=== PATIENT | female | born 1965 | race Hispanic/Latino ===

== ENCOUNTER → 2017-07-12 | Outpatient (CLI) | payer OTHER, MEDICARE ==
[~2017-07-12] MED LIST: ALBU6.7H IH; CELE200 PO; CETI10TA86 PO; DESV50TA PO; DICL2100G TP; FAMO20TA32 PO; GABA-531 PO; IBUP-2077 PO; LANS30CA55 PO; LUBI24CA2 PO; PANT40TA25 PO; TRAM50TA4 PO; TRAZ-147 PO; ZOLP10TA6 PO; [UNRECOGNIZED DRUG - CODE] PO
== END | disposition home or self-care (01) ==
LOC: RAH 09:34
PROVIDERS: ATTEND Internal Medicine
DX: N63.32 Unspecified lump in axillary tail of the left breast (principal); R60.0 Localized edema; R59.9 Enlarged lymph nodes, unspecified; Z85.3 Personal history of malignant neoplasm of breast
CPT/HCPCS: 73610; 76882; 77065; 93971

== ENCOUNTER → 2017-07-25 | Outpatient (CLI) | payer OTHER, MEDICARE | END | disposition home or self-care (01) | LOC: RAH 07-18 12:39 | PROVIDERS: ATTEND Internal Medicine | DX: R22.2 Localized swelling, mass and lump, trunk (principal) | CPT/HCPCS: 76882 ==

== ENCOUNTER 2017-08-22 06:30 | Day surgery (SDC) | payer OTHER, MEDICARE ==
[~2017-08-22 06:30] MED LIST changes: -ALBU6.7H IH; -FAMO20TA32 PO; -GABA-531 PO; -LANS30CA55 PO; -PANT40TA25 PO; -[UNRECOGNIZED DRUG - CODE] PO
[2017-08-22] MEDS ORDERED: SODIUM CHLORIDE 0.9% 1000ML 1,000 ML IV ONE (06:50)
[2017-08-22] MEDS ORDERED: PROPOFOL 10 MG/ML 20ML VIAL IV ONE ×2 (07:52)
[2017-08-22] MEDS ORDERED: GABA-531 PO (08:01)
[2017-08-22] MEDS ORDERED: PANT40TA25 PO (08:01)
[2017-08-22] MEDS ORDERED: LANS30CA55 PO (08:01)
[2017-08-22] MEDS ORDERED: ALBU6.7H IH (08:01)
[2017-08-22] MEDS ORDERED: FAMO20TA32 PO (08:01)
[2017-08-22] MEDS ORDERED: [UNRECOGNIZED DRUG - CODE] PO (08:01)
== END 2017-08-22 08:45 | disposition home or self-care (01) ==
LOC: SUH 06:30 → DAH 06:30 → SUH 08:45
PROVIDERS: ATTEND Internal Medicine Gastroenterology
DX: Z12.11 Encounter for screening for malignant neoplasm of colon (principal); K21.9 Gastro-esophageal reflux disease without esophagitis; F32.9 Major depressive disorder, single episode, unspecified; M19.90 Unspecified osteoarthritis, unspecified site; Z85.3 Personal history of malignant neoplasm of breast; Z85.44 Personal history of malignant neoplasm of other female genital organs
CPT/HCPCS: A4606; G0121; J2704 ×2; J7030

== ENCOUNTER → 2017-09-20 | Outpatient (CLI) | payer OTHER, MEDICARE ==
[~2017-09-20] MED LIST changes: +ALBU6.7H IH; +FAMO20TA32 PO; +GABA-531 PO; -IBUP-2077 PO; +LANS30CA55 PO; +PANT40TA25 PO; -TRAM50TA4 PO; -TRAZ-147 PO; +[UNRECOGNIZED DRUG - CODE] PO
== END ==
LOC: RAH 09:40
PROVIDERS: ATTEND Pain Medicine Interventional Pain Medicine
DX: R60.0 Localized edema (principal); M79.672 Pain in left foot
CPT/HCPCS: 73630

== ENCOUNTER → 2017-10-10 | Outpatient (CLI) | payer OTHER, MEDICARE | END | disposition home or self-care (01) | LOC: RAH 09:23 | PROVIDERS: ATTEND Internal Medicine | DX: R06.09 Other forms of dyspnea (principal); Z90.12 Acquired absence of left breast and nipple | CPT/HCPCS: 71046 ==

== ENCOUNTER → 2017-10-28 | Outpatient (CLI) | payer OTHER, MEDICARE | END | disposition home or self-care (01) | LOC: RAH 08:37 | PROVIDERS: ATTEND Internal Medicine | DX: R06.09 Other forms of dyspnea (principal) | CPT/HCPCS: 93306 ==

== ENCOUNTER → 2018-12-18 | Outpatient (CLI) | payer OTHER, MEDICARE | END | disposition home or self-care (01) | LOC: RAH 11:38 | PROVIDERS: ATTEND Pain Medicine Interventional Pain Medicine | DX: M47.812 Spondylosis without myelopathy or radiculopathy, cervical region (principal); Z85.3 Personal history of malignant neoplasm of breast | CPT/HCPCS: 72040 ==

== ENCOUNTER 2019-01-17 06:41 | Inpatient (IN) | payer OTHER, MEDICARE | END 2019-01-19 13:20 | LOC: DAH 06:41 → DAHIP 06:42 → 4BH 13:51 | PROC: 0SRC0J9 Replacement of Right Knee Joint with Synthetic Substitute, Cemented, Open Approach (ICD-10-PCS; principal; 2019-01-17 10:08) | DX: M17.11 Unilateral primary osteoarthritis, right knee (principal) ==

== ENCOUNTER 2019-03-06 17:15 | Emergency (ER) | payer OTHER, MEDICARE ==
[~2019-03-06 17:15] MED LIST changes: +ACET-2027 PO; -ALBU6.7H IH; +ALBU6.7H9 IH; +ASCO10007 PO; +ASPI-1012 PO; +ATOR10TA PO; +CYCL30DR OP; -DICL2100G TP; +DULO60CA64 PO; -FAMO20TA32 PO; +GABA600T10 PO; +HYDR25TA PO; -LANS30CA55 PO; -LUBI24CA2 PO; +MECL12.585 PO; +MORP-108 PO; +MV-M1TAB20 PO; -PANT40TA25 PO; +POTA20TA12 PO; +PRAM0.122 PO; -[UNRECOGNIZED DRUG - CODE] PO
[2019-03-06] MEDS ORDERED: SODIUM CHLORIDE 0.9% 1000ML 1,000 ML IV ONE (18:12)
[2019-03-06 18:23] LABS: BASOPHILS % (AUTO) 0.6 % (0.0-5.0); EOSINOPHILS % (AUTO) 0.1 % (0.0-8.0); HEMATOCRIT 32.9 % (36-48); LYMPHOCYTES % (AUTO) 16.9 % (21.0-51.0); MEAN CORPUSCULAR HEMOGLOBIN 27.3 pg (27.0-33.0); MEAN CORPUSCULAR HGB CONC 33.8 g/dL (32.0-36.0); MEAN CORPUSCULAR VOLUME 80.7 fL (79-99); MONOCYTES % (AUTO) 6.1 % (3.0-13.0); NEUTROPHILS % (AUTO) 76.3 % (40.0-77.0); PLATELET COUNT (AUTO) 87 K/uL (130-400); RED BLOOD CELL COUNT(AUTO) 4.08 MIL/uL (4.00-5.50); WHITE BLOOD COUNT (AUTO) 9.4 K/uL (4.8-10.8)
[2019-03-06] MEDS ORDERED: ONDANSETRON HCL 4 MG/2 ML VIAL ONE (18:53)
[2019-03-06] MEDS ORDERED: DIPHENOXYLATE HCL/ATROPINE 2.5/0.025 MG TAB PO ONE (18:53)
[2019-03-06 19:08] LABS: ALANINE AMINOTRANSFERASE 8 U/L (12-78); ALBUMIN 2.9 g/dL (3.5-5.0); ASPARTATE AMINOTRANSFERASE 19 U/L (10-37); BILIRUBIN,TOTAL 0.9 mg/dL (0.2-1.0); CARBON DIOXIDE 40 mmol/L (21-32); CREATININE 0.6 mg/dL (0.5-1.5); GLOMERULAR FILTR. RATE CALC 111 mL/min (>60); GLUCOSE,RANDOM 147 mg/dL (70-105); SODIUM SERUM 136 mmol/L (136-145); UREA NITROGEN, BLOOD 12 mg/dL (7-18)
[2019-03-06 19:11] LABS: LIPASE < 50 U/L (114-286)
[2019-03-06 19:12] LABS: CHLORIDE 90 mmol/L (101-111); POTASSIUM 2.7 mmol/L (3.5-5.1)
[2019-03-06] MEDS ORDERED: IOHEXOL-350 75 ML VIAL IV ONE (19:26)
[2019-03-06] MEDS ORDERED: POTASSIUM CHLORIDE 20 MEQ ERTAB PO ONE ×2 (19:33→20:42)
[2019-03-06 19:35] LABS: APPEARANCE,URINE Cloudy (CLEAR); BILIRUBIN,URINE Negative (NEGATIVE); COLOR,URINE Yellow (YELLOW); GLUCOSE, URINE (UA) Negative (NEGATIVE); KETONES,URINE Negative (NEGATIVE); LEUKOCYTE ESTERASE ,URINE Trace (NEGATIVE); NITRATE,URINE Positive (NEGATIVE); OCCULT BLOOD,URINE Negative (NEGATIVE); PROTEIN,URINE Negative (NEGATIVE)
[2019-03-06 19:49] LABS: PLATELET MORPHOLOGY COMMENT DECREASED
[2019-03-06 20:13] LABS: BACTERIA,URINE Few /HPF (None Seen); RBC,URINE 0-1 /HPF (0-1)
[2019-03-06 20:14] LABS: SQUAMOUS EPITHELIAL CELL,UR Few /HPF (0-2)
[2019-03-06 20:15] LABS: TRANSITIONAL EPI CELLS,URINE Rare /HPF (None Seen)
== END 2019-03-06 20:55 | disposition home or self-care (01) ==
LOC: EDH 17:15
DX: E87.6 Hypokalemia (principal); R11.2 Nausea with vomiting, unspecified; R19.7 Diarrhea, unspecified; E78.00 Pure hypercholesterolemia, unspecified; M19.90 Unspecified osteoarthritis, unspecified site; Z98.890 Other specified postprocedural states
CPT/HCPCS: 36415; 71045; 74177; 80053; 81001; 83690; 83735; 85025; 96374; 99285; J2405; J7030; Q9967

== ENCOUNTER → 2020-04-14 | Outpatient (CLI) | payer OTHER, MEDICARE ==
[~2020-04-14] MED LIST changes: +ASCO100031 PO; -ASCO10007 PO; +IOHEXOL-350 50ML VIAL IV ONE; +MECL-183 PO; -MECL12.585 PO
== END | disposition home or self-care (01) ==
LOC: RAH 13:24
PROVIDERS: ATTEND Internal Medicine
DX: R55 Syncope and collapse (principal); H81.13 Benign paroxysmal vertigo, bilateral
CPT/HCPCS: 70470; Q9967

== ENCOUNTER → 2020-04-21 | Outpatient (CLI) | payer OTHER, MEDICARE ==
[~2020-04-21] MED LIST changes: -IOHEXOL-350 50ML VIAL IV ONE
== END | disposition home or self-care (01) ==
LOC: RAH 08:50
PROVIDERS: ATTEND Internal Medicine
DX: R55 Syncope and collapse (principal)
CPT/HCPCS: 93306; 93356; 93880

== ENCOUNTER → 2020-10-01 | Outpatient (CLI) | payer OTHER, MEDICARE ==
[~2020-10-01] MED LIST changes: -MECL-183 PO; +MECL-226 PO
== END | disposition home or self-care (01) ==
LOC: RAH 14:20
PROVIDERS: ATTEND Internal Medicine
DX: R92.2 Inconclusive mammogram (principal); Z85.3 Personal history of malignant neoplasm of breast
CPT/HCPCS: 77065

== ENCOUNTER → 2021-02-03 | Outpatient (CLI) | payer OTHER, MEDICARE | END | disposition home or self-care (01) | LOC: RAH 08:46 | PROVIDERS: ATTEND Internal Medicine | DX: S92.352A Displaced fracture of fifth metatarsal bone, left foot, initial encounter for closed fracture (principal); X58.XXXA Exposure to other specified factors, initial encounter; Y93.89 Activity, other specified; Y92.89 Other specified places as the place of occurrence of the external cause; Y99.8 Other external cause status | CPT/HCPCS: 73630 ==

== ENCOUNTER → 2021-07-20 | Outpatient (CLI) | payer OTHER, MEDICARE ==
[~2021-07-20] MED LIST changes: -CETI10TA86 PO; +CETI10TA87 PO; +POTA-192 PO; -POTA20TA12 PO
== END | disposition home or self-care (01) ==
LOC: RAH 09:30
PROVIDERS: ATTEND Pain Medicine Interventional Pain Medicine
DX: M54.17 Radiculopathy, lumbosacral region (principal)
CPT/HCPCS: 72100

== ENCOUNTER 2022-03-07 16:59 | Emergency (ER) | payer OTHER, MEDICARE ==
[~2022-03-07] VITALS: Ht 154.9 cm; Wt 81.2 kg
[~2022-03-07 16:59] MED LIST changes: +ALBU6.7H14 IH; -ALBU6.7H9 IH
[2022-03-07 17:01] VITALS: BP 122/55
== END 2022-03-07 18:45 | disposition left against medical advice (07) ==
LOC: EDH 16:59
DX: R52 Pain, unspecified (principal); Z53.21 Procedure and treatment not carried out due to patient leaving prior to being seen by health care provider

== ENCOUNTER → 2022-12-06 | Outpatient (CLI) | payer OTHER, MEDICARE | END | disposition home or self-care (01) | LOC: RAH 13:46 | PROVIDERS: ATTEND Student in an Organized Health Care Education/Training Program | DX: R22.32 Localized swelling, mass and lump, left upper limb (principal); R22.41 Localized swelling, mass and lump, right lower limb | CPT/HCPCS: 76882 ==

== ENCOUNTER → 2023-01-04 | Outpatient (CLI) | payer OTHER, MEDICARE | END | disposition home or self-care (01) | LOC: RAH 10:22 | PROVIDERS: ATTEND Student in an Organized Health Care Education/Training Program | DX: M79.9 Soft tissue disorder, unspecified (principal); R22.42 Localized swelling, mass and lump, left lower limb | CPT/HCPCS: 93971 ==

== ENCOUNTER → 2023-01-06 | Outpatient (CLI) | payer OTHER, MEDICARE | END | disposition home or self-care (01) | LOC: RAH 09:32 | PROVIDERS: ATTEND Student in an Organized Health Care Education/Training Program | DX: I51.7 Cardiomegaly (principal); M95.4 Acquired deformity of chest and rib; M84.452D Pathological fracture, left femur, subsequent encounter for fracture with routine healing; R10.2 Pelvic and perineal pain | CPT/HCPCS: 71046; 72170 ==

== ENCOUNTER → 2023-01-19 | Outpatient (CLI) | payer OTHER, MEDICARE ==
[~2023-01-19] MED LIST changes: +AMOX500C2 PO; +CHOL500051 PO; +ESOM40CA54 PO; +FLUT16H NASAL; +GADOTERATE MEGLUMINE 10 MMOL/20 ML VIAL IV ONE
== END | disposition home or self-care (01) ==
LOC: CANPRECLI → RAH 14:34
PROVIDERS: ATTEND Student in an Organized Health Care Education/Training Program
DX: R10.2 Pelvic and perineal pain (principal)
CPT/HCPCS: 72197; A9575

== ENCOUNTER → 2023-02-15 | Outpatient (CLI) | payer OTHER, MEDICARE ==
[~2023-02-15] MED LIST changes: -AMOX500C2 PO; -CHOL500051 PO; -ESOM40CA54 PO; -FLUT16H NASAL; -GADOTERATE MEGLUMINE 10 MMOL/20 ML VIAL IV ONE
== END | disposition home or self-care (01) ==
LOC: RAH 13:18
PROVIDERS: ATTEND Internal Medicine
DX: M19.072 Primary osteoarthritis, left ankle and foot (principal); M79.672 Pain in left foot; M54.31 Sciatica, right side; M79.89 Other specified soft tissue disorders; M77.32 Calcaneal spur, left foot
CPT/HCPCS: 73630

== ENCOUNTER 2023-03-24 06:21 | Day surgery (SDC) | payer OTHER, MEDICARE ==
[2023-03-21 10:35] LABS: BASOPHILS # (AUTO) 0.02 K/uL (0.00-0.20); BASOPHILS % (AUTO) 0.3 % (0.0-5.0); EOSINOPHILS # (AUTO) 0.05 K/uL (0.00-0.70); EOSINOPHILS % (AUTO) 0.7 % (0.0-8.0); HEMATOCRIT 32.6 % (36-48); IMMATURE GRANULOCYTE ABSOLUTE 0.04 K/uL (0-1); LYMPHOCYTES # (AUTO) 2.2 K/uL (1.0-4.8); MEAN CORPUSCULAR HEMOGLOBIN 25.1 pg (27.0-33.0); MEAN CORPUSCULAR HGB CONC 30.4 g/dL (32.0-36.0); MEAN CORPUSCULAR VOLUME 82.7 fL (79-99); MONOCYTES # (AUTO) 0.3 K/uL (0.1-1.0); MONOCYTES % (AUTO) 4.8 % (3.0-13.0); NEUTROPHILS # (AUTO) 4.4 K/uL (1.8-7.7); NEUTROPHILS % (AUTO) 62.6 % (40.0-77.0); PLATELET COUNT (AUTO) 286 K/uL (130-400); RED BLOOD CELL COUNT(AUTO) 3.94 MIL/uL (4.00-5.50); RED CELL DISTRIBUTION WIDTH 17.3 % (11.0-15.5); WHITE BLOOD COUNT (AUTO) 7.1 K/uL (4.8-10.8)
[2023-03-21 10:45] LABS: CREATININE 0.7 mg/dL (0.5-1.5); POTASSIUM 3.5 mmol/L (3.5-5.1)
[2023-03-21 11:07] VITALS: BP 154/60; PULSE 104; RESP 18
[~2023-03-24] VITALS: Ht 154.9 cm; Wt 85.7 kg
[2023-03-24] VITALS (16 sets, daily range): BP systolic 93–153; BP diastolic 45–82; PULSE 84–103; RESP 14–20
[~2023-03-24 06:21] MED LIST changes: -ACET-2027 PO; -ALBU6.7H14 IH; +AMOX500C2 PO; -ASCO100031 PO; -ASPI-1012 PO; +CHOL500051 PO; +ESOM40CA54 PO; +FLUT16H NASAL; -GABA-531 PO; -MECL-226 PO; -MORP-108 PO; -MV-M1TAB20 PO; -POTA-192 PO; -PRAM0.122 PO
[2023-03-24] MEDS ORDERED: CEFAZOLIN SODIUM 2 GM VIAL ONE (06:30)
[2023-03-24] MEDS ORDERED: LACTATED RINGERS 1000ML 1,000 ML IV ONE (06:30)
[2023-03-24] MEDS ORDERED: LIDOCAINE HCL 1% MDV 50ML VIAL ONE (08:21)
[2023-03-24] MEDS ORDERED: BUPIVACAINE/PF 0.25% 30ML VIAL IJ ONE (08:21)
[2023-03-24] MEDS ORDERED: PROPOFOL 10 MG/ML 20ML VIAL IV ONE (08:26)
[2023-03-24] MEDS ORDERED: MIDAZOLAM HCL 1 MG/ML 2ML VIAL ONE (08:26)
[2023-03-24] MEDS ORDERED: FENTANYL CITRATE PF 50 MCG/1 ML 2ML VIAL ONE (08:27)
[2023-03-24] MEDS ORDERED: KETAMINE 50MG/ML SYRINGE 50 MG/ML DISP.SYRIN ONE (08:46)
[2023-03-24] MEDS ORDERED: ONDANSETRON 4MG INJ ONE (10:06)
[2023-03-24] MEDS ORDERED: MEPERIDINE-PF 25 MG/ML SYG ONE (10:07)
[2023-03-24] MEDS ORDERED: CHOL500051 PO (10:28)
== END 2023-03-24 11:17 | disposition home or self-care (01) ==
LOC: DAH 06:21
PROVIDERS: ATTEND Student in an Organized Health Care Education/Training Program
DX: D36.7 Benign neoplasm of other specified sites (principal); E66.9 Obesity, unspecified; M19.90 Unspecified osteoarthritis, unspecified site; Z79.899 Other long term (current) drug therapy; Z79.01 Long term (current) use of anticoagulants; Z98.890 Other specified postprocedural states; Z68.43 Body mass index [BMI] 50.0-59.9, adult
CPT/HCPCS: 80048; 84703; 85025; 36415; 20205; 88307; A4663; J7120; J3010; J3490 ×3; J2250; J2704; J2405; J2175; J0690; A4930 ×3; A4215; A4223; A4222; A4221; G0168

== ENCOUNTER → 2023-04-04 | Outpatient (CLI) | payer OTHER, MEDICARE | END | disposition home or self-care (01) | LOC: RAH 14:03 | PROVIDERS: ATTEND Internal Medicine | DX: Z85.3 Personal history of malignant neoplasm of breast (principal) | CPT/HCPCS: 77065 ==

== ENCOUNTER → 2023-04-19 | Outpatient (CLI) | payer OTHER, MEDICARE | END | disposition home or self-care (01) | LOC: RAH 14:20 | PROVIDERS: ATTEND Internal Medicine | DX: M21.962 Unspecified acquired deformity of left lower leg (principal); M25.872 Other specified joint disorders, left ankle and foot; M79.672 Pain in left foot; R22.2 Localized swelling, mass and lump, trunk | CPT/HCPCS: 72100; 73718 ==

== ENCOUNTER → 2023-04-25 | Outpatient (CLI) | payer OTHER, MEDICARE | END | disposition home or self-care (01) | LOC: RAH 14:09 | PROVIDERS: ATTEND Student in an Organized Health Care Education/Training Program | DX: M47.816 Spondylosis without myelopathy or radiculopathy, lumbar region (principal); R22.41 Localized swelling, mass and lump, right lower limb | CPT/HCPCS: 72148 ==

== ENCOUNTER 2023-05-19 09:19 | Day surgery (SDC) | payer OTHER, MEDICARE ==
[2023-05-17 14:44] VITALS: BP 123/53; PULSE 83; RESP 16
[2023-05-17 15:05] LABS: BASOPHILS # (AUTO) 0.03 K/uL (0.00-0.20); BASOPHILS % (AUTO) 0.4 % (0.0-5.0); EOSINOPHILS % (AUTO) 1.4 % (0.0-8.0); HEMATOCRIT 32.1 % (36-48); IMMATURE GRANULOCYTE ABSOLUTE 0.05 K/uL (0-1); LYMPHOCYTES # (AUTO) 2.4 K/uL (1.0-4.8); LYMPHOCYTES % (AUTO) 34.5 % (21.0-51.0); MEAN CORPUSCULAR HEMOGLOBIN 24.6 pg (27.0-33.0); MEAN CORPUSCULAR HGB CONC 30.2 g/dL (32.0-36.0); MEAN CORPUSCULAR VOLUME 81.3 fL (79-99); MONOCYTES # (AUTO) 0.5 K/uL (0.1-1.0); MONOCYTES % (AUTO) 6.9 % (3.0-13.0); NEUTROPHILS # (AUTO) 3.9 K/uL (1.8-7.7); NEUTROPHILS % (AUTO) 56.1 % (40.0-77.0); PLATELET COUNT (AUTO) 334 K/uL (130-400); RED BLOOD CELL COUNT(AUTO) 3.95 MIL/uL (4.00-5.50); RED CELL DISTRIBUTION WIDTH 18.2 % (11.0-15.5); WHITE BLOOD COUNT (AUTO) 6.9 K/uL (4.8-10.8)
[2023-05-19] VITALS (18 sets, daily range): BP systolic 104–126; BP diastolic 45–61; PULSE 86–98; RESP 10–22
[~2023-05-19] VITALS: Ht 147.3 cm; Wt 85.0 kg
[~2023-05-19 09:19] MED LIST changes: -AMOX500C2 PO; +ASCO500C6 PO; -ATOR10TA PO; +ATOR20TA65 PO; +CALC-1125 PO; -CETI10TA87 PO; +DESV25TA2 PO; -DESV50TA PO; -DULO60CA64 PO; -ESOM40CA54 PO; -FLUT16H NASAL; -HYDR25TA PO; +IRON1CAP32 PO; +MIRT7.5T11 PO; +MORP15TA70 PO
[2023-05-19] MEDS ORDERED: LACTATED RINGERS 1000ML 1,000 ML IV ONE (10:04)
[2023-05-19] MEDS ORDERED: CEFAZOLIN SODIUM 2 GM VIAL ONE (10:04)
[2023-05-19] MEDS ORDERED: LIDOCAINE PF 100MG/5ML (2%) SYRINGE 5ML ONE ×2 (10:30→10:32)
[2023-05-19] MEDS ORDERED: SUCCINYLCHOLINE 200MG/10ML SYR ONE (10:30)
[2023-05-19] MEDS ORDERED: PROPOFOL 10 MG/ML 20ML VIAL IV ONE (10:30)
[2023-05-19] MEDS ORDERED: FENTANYL CITRATE PF 50 MCG/1 ML 2ML VIAL ONE (10:30)
[2023-05-19] MEDS ORDERED: MIDAZOLAM HCL 1 MG/ML 2ML VIAL ONE (10:30)
[2023-05-19] MEDS ORDERED: LIDOCAINE HCL 4% LTA SOL 4 ML VIAL ONE (10:32)
[2023-05-19] MEDS ORDERED: DEXAMETHASONE SOD PHOSPHATE 10MG/ML 1ML VIAL ONE (10:50)
[2023-05-19] MEDS ORDERED: ONDANSETRON 4MG INJ ONE ×2 (10:50→12:34)
[2023-05-19] MEDS ORDERED: BUPIVACAINE/PF 0.25% 30ML VIAL IJ ONE (11:16)
[2023-05-19] MEDS ORDERED: LIDOCAINE 1%-EPI 1:100,000 20 ML VIAL IJ ONE (11:16)
[2023-05-19] MEDS ORDERED: IPRATROPIUM/ALBUTEROL SULFATE 3 ML SOLUTION IH ONE ×3 (12:14→13:00)
[2023-05-19] MEDS ORDERED: ALBUTEROL 0.042% 1.25MG/3ML IH ONE (12:14)
[2023-05-19] MEDS ORDERED: ALBUTEROL 0.083% 2.5 MG/3 ML INH IH ONE (12:15)
[2023-05-19] MEDS ORDERED: MEPERIDINE-PF 25 MG/ML SYG ONE (12:35)
== END 2023-05-19 14:10 | disposition home or self-care (01) ==
LOC: DAH 09:19
PROVIDERS: ATTEND Student in an Organized Health Care Education/Training Program
DX: D17.1 Benign lipomatous neoplasm of skin and subcutaneous tissue of trunk (principal); M19.90 Unspecified osteoarthritis, unspecified site; K21.9 Gastro-esophageal reflux disease without esophagitis; F41.9 Anxiety disorder, unspecified; E78.5 Hyperlipidemia, unspecified; J45.909 Unspecified asthma, uncomplicated; E66.9 Obesity, unspecified; Z79.899 Other long term (current) drug therapy; Z98.890 Other specified postprocedural states; Z88.8 Allergy status to other drugs, medicaments and biological substances; Z68.43 Body mass index [BMI] 50.0-59.9, adult
CPT/HCPCS: 84703; 85025; 36415; 21931; 94640; 88305; A6260; A4663; A4452; J7120; J3010; J3490; J0330; J1100; J0665; J2001 ×2; J2250; J2704; J2405 ×2; J2175; J0690; A4215; A4223; A4222; A4221; A4600

== ENCOUNTER → 2023-06-23 | Outpatient (CLI) | payer OTHER, MEDICARE | END | disposition home or self-care (01) | LOC: RAH 12:51 | PROVIDERS: ATTEND Student in an Organized Health Care Education/Training Program | DX: R22.2 Localized swelling, mass and lump, trunk (principal) | CPT/HCPCS: 76882 ==

== ENCOUNTER 2023-07-28 11:17 | Day surgery (SDC) | payer OTHER, MEDICARE ==
[2023-07-25 08:59] VITALS: BP 125/57; PULSE 96; RESP 18
[2023-07-25 09:18] LABS: BASOPHILS # (AUTO) 0.03 K/uL (0.00-0.20); BASOPHILS % (AUTO) 0.4 % (0.0-5.0); EOSINOPHILS % (AUTO) 1.4 % (0.0-8.0); HEMATOCRIT 33.9 % (36-48); IMMATURE GRANULOCYTE ABSOLUTE 0.03 K/uL (0-1); LYMPHOCYTES % (AUTO) 29.1 % (21.0-51.0); MEAN CORPUSCULAR HEMOGLOBIN 25.4 pg (27.0-33.0); MEAN CORPUSCULAR HGB CONC 30.4 g/dL (32.0-36.0); MEAN CORPUSCULAR VOLUME 83.7 fL (79-99); MONOCYTES # (AUTO) 0.4 K/uL (0.1-1.0); MONOCYTES % (AUTO) 5.5 % (3.0-13.0); NEUTROPHILS # (AUTO) 4.4 K/uL (1.8-7.7); NEUTROPHILS % (AUTO) 63.2 % (40.0-77.0); PLATELET COUNT (AUTO) 264 K/uL (130-400); RED BLOOD CELL COUNT(AUTO) 4.05 MIL/uL (4.00-5.50); RED CELL DISTRIBUTION WIDTH 19.7 % (11.0-15.5); WHITE BLOOD COUNT (AUTO) 6.9 K/uL (4.8-10.8)
[2023-07-25 09:49] LABS: CREATININE 0.6 mg/dL (0.5-1.5); POTASSIUM 3.6 mmol/L (3.5-5.1)
[2023-07-28] VITALS (15 sets, daily range): BP systolic 106–127; BP diastolic 50–61; PULSE 78–100; RESP 15–21
[~2023-07-28] VITALS: Ht 147.3 cm; Wt 84.7 kg
[~2023-07-28 11:17] MED LIST changes: +AMOX500C2 PO; -ASCO500C6 PO; +ATOR10 PO; -ATOR20TA65 PO; +BUSP7.5T7 PO; -CALC-1125 PO; +CETI10TA57 PO; -CYCL30DR OP; -DESV25TA2 PO; +DESV50TA20 PO; +DULO60CA64 PO; +ESOM40CA54 PO; +FLUT1BLS8 IH; +HYDR25TA PO; -IRON1CAP32 PO; -MIRT7.5T11 PO; -MORP15TA70 PO; +PENICILLIN PO; +POTA-202 PO
[2023-07-28] MEDS: LACTATED RINGERS 1000ML 1,000 ML IV ONE (12:07)
[2023-07-28] MEDS: CEFAZOLIN SODIUM 2 GM VIAL ONE (12:07)
[2023-07-28] MEDS ORDERED: LIDOCAINE PF 100MG/5ML (2%) SYRINGE 5ML ONE (12:16)
[2023-07-28] MEDS ORDERED: MIDAZOLAM HCL 1 MG/ML 2ML VIAL ONE (12:18)
[2023-07-28] MEDS ORDERED: PROPOFOL 10 MG/ML 20ML VIAL IV ONE (12:18)
[2023-07-28] MEDS ORDERED: FENTANYL CITRATE PF 50 MCG/1 ML 2ML VIAL ONE ×2 (12:19→13:43)
[2023-07-28] MEDS ORDERED: ROCURONIUM BROMIDE 10MG/1ML 5ML VL ONE (12:19)
[2023-07-28] MEDS ORDERED: BUPIVACAINE/PF 0.5% 30ML VIAL ONE (12:25)
[2023-07-28] MEDS: LIDOCAINE HCL 1% 20 ML VIAL ONE (13:01)
[2023-07-28] MEDS: BUPIVACAINE/PF 0.25% 30ML VIAL IJ ONE (13:01)
[2023-07-28] MEDS ORDERED: ONDANSETRON 4MG INJ ONE (13:10)
[2023-07-28] MEDS ORDERED: NEOSTIGMINE METHYLSULFATE 1MG/ML IV ONE (13:38)
[2023-07-28] MEDS ORDERED: GLYCOPYRROLATE 0.2 MG/ML 5 ML VIAL ONE (13:38)
== END 2023-07-28 15:24 | disposition home or self-care (01) ==
LOC: DAH 11:17
PROVIDERS: ATTEND Student in an Organized Health Care Education/Training Program
DX: R22.2 Localized swelling, mass and lump, trunk (principal); D17.24 Benign lipomatous neoplasm of skin and subcutaneous tissue of left leg; M79.652 Pain in left thigh; Z82.49 Family history of ischemic heart disease and other diseases of the circulatory system; Z83.3 Family history of diabetes mellitus; Z82.5 Family history of asthma and other chronic lower respiratory diseases; Z98.41 Cataract extraction status, right eye; Z98.42 Cataract extraction status, left eye; Z91.013 Allergy to seafood; Z79.899 Other long term (current) drug therapy; Z98.890 Other specified postprocedural states
CPT/HCPCS: 80048; 85025; 36415; 27328 ×2; 81025; 88304; 88305; A6260; A4663; J7120 ×2; J3010 ×2; J0665; J3490 ×2; J2001; J2250; J2704; J2405; J2710; J0690; A4930; A4215; A4223; A4222; A4221; G0168

== ENCOUNTER → 2023-11-22 | Outpatient (CLI) | payer OTHER, MEDICARE ==
[~2023-11-22] MED LIST changes: -ESOM40CA54 PO; +ESOM40CA66 PO; -PENICILLIN PO
== END | disposition home or self-care (01) ==
LOC: RAH 10:39
PROVIDERS: ATTEND Pain Medicine Interventional Pain Medicine
DX: M47.812 Spondylosis without myelopathy or radiculopathy, cervical region (principal); M25.78 Osteophyte, vertebrae; M54.2 Cervicalgia
CPT/HCPCS: 72040

== ENCOUNTER → 2024-01-26 | Outpatient (CLI) | payer OTHER, MEDICARE | END | disposition home or self-care (01) | LOC: RAH 10:32 | PROVIDERS: ATTEND Pain Medicine Interventional Pain Medicine | DX: M19.072 Primary osteoarthritis, left ankle and foot (principal); M19.071 Primary osteoarthritis, right ankle and foot; M77.32 Calcaneal spur, left foot | CPT/HCPCS: 73610 ==

== ENCOUNTER → 2024-04-03 | Outpatient (CLI) | payer OTHER, MEDICARE ==
[~2024-04-03] MED LIST changes: +GABA-1405 PO; -GABA600T10 PO; +GADOTERATE MEGLUMINE 10 MMOL/20 ML VIAL IV ONE
== END | disposition home or self-care (01) ==
LOC: RAH 07:38
DX: R22.42 Localized swelling, mass and lump, left lower limb (principal); M21.962 Unspecified acquired deformity of left lower leg
CPT/HCPCS: 73720; 73723; A9575

== ENCOUNTER → 2024-07-16 | Outpatient (CLI) | payer OTHER, MEDICARE ==
[~2024-07-16] MED LIST changes: -AMOX500C2 PO; -CELE200 PO; -ESOM40CA66 PO; -GADOTERATE MEGLUMINE 10 MMOL/20 ML VIAL IV ONE; +LATA2.5D14 OU; +MIRT45TA83 PO; +NALO4SPR NS; +OXYC10TA48 PO; -ZOLP10TA6 PO
--- NOTE | 2024-07-16 12:43 | HMCIMG ---
HIP UNILAT 2-3VW LEFT REASON: PAIN IN LEFT LOWER LIMB; CONTUSION OF UNSPECIFIED LOWER LEG TECHNIQUE: 3 views were obtained. 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 These have been noted on multiple prior exams. There is a fracture of the proximal left femur. There appears to be some callus suggesting this may be subacute, the fracture line does remain visible. There are no other acute findings. IMPRESSION: 1. Fractured proximal left femoral diaphysis, there is extensive surrounding callus suggesting this may be subacute, the fracture line does remain visible. 2. 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
--- NOTE | 2024-07-16 12:46 | HMCIMG ---
FEMUR 2 VW LEFT REASON: PAIN IN LEFT LOWER LIMB; CONTUSION OF UNSPECIFIED LOWER LEG TECHNIQUE: 4 views were obtained. FINDINGS: There is a fracture of the proximal left femoral diaphysis at the junction of the proximal and middle third. There is extensive cortical thickening and callus formation, fracture but is probably subacute. Fracture line does remain visible. Extensive changes of fibrous dysplasia are again noted. IMPRESSION: 1. Fractured proximal left femoral shaft, subacute. 2. Extensive changes of fibrous dysplasia.
--- NOTE | 2024-07-16 12:46 | HMCIMG ---
FOOT COMP 3+VWS LT REASON: PAIN OF TOE OF LEFT FOOT; PAIN IN LEFT TOE(S);CONTUSION OF UNSPECIFIED FOOT TECHNIQUE: 3 views were performed. FINDINGS: There are extensive changes consistent with fibrous dysplasia, present throughout the left foot and ankle. views were obtained. FINDINGS: There are no visible fractures. Exam appears unchanged since prior study 02/15/2023. IMPRESSION: 1. No acute finding, no change.
== END | disposition home or self-care (01) ==
LOC: RAH 10:54
PROVIDERS: ATTEND Internal Medicine
DX: S72.302A Unspecified fracture of shaft of left femur, initial encounter for closed fracture (principal); S80.12XA Contusion of left lower leg, initial encounter; S90.32XA Contusion of left foot, initial encounter; X58.XXXA Exposure to other specified factors, initial encounter; Y93.89 Activity, other specified; Y92.89 Other specified places as the place of occurrence of the external cause; Y99.8 Other external cause status; Q89.8 Other specified congenital malformations
CPT/HCPCS: 73502; 73552; 73630

== ENCOUNTER → 2024-09-24 | Outpatient (CLI) | payer OTHER, MEDICARE ==
--- NOTE | 2024-09-25 08:54 | HMCIMG ---
PROCEDURE: MAMMO DX UNILATERAL RIGHT HISTORY: Breast cancer COMPARISON: 04/04/2023 TECHNIQUE: Right breast digital diagnostic mammogram with CAD was performed. No additional views were obtained. FINDINGS: There are scattered areas of fibroglandular density. Stable nodular density is seen in the upper outer aspect of the right breast unchanged consistent with intramammary lymph node. There is no evidence of a dominant mass, or suspicious microcalcification. There is no evidence of nipple retraction or skin thickening. IMPRESSION: 1. Stable right breast mammogram. BI-RADS: CATEGORY 2: BENIGN FINDINGS Recommend monthly self breast exam as well as annual clinical examination. A negative x-ray should not delay biopsy if a dominant or clinically suspicious mass is present, since 8-10% of cancers are not identified by mammography. Dense breasts particularly, may obscure an underlying neoplasm. Some of these may be detected clinically and therefore, clinical examination is an essential part of breast evaluation.
== END | disposition home or self-care (01) ==
LOC: RAH 14:41
PROVIDERS: ATTEND Internal Medicine
DX: R92.321 Mammographic fibroglandular density, right breast (principal); Z85.3 Personal history of malignant neoplasm of breast
CPT/HCPCS: 77065

== ENCOUNTER → 2024-11-02 | Outpatient (CLI) | payer OTHER, MEDICARE ==
--- NOTE | 2024-11-02 09:25 | HMCIMG ---
Exam Type: LUMBAR SPINE 2-3VWS Clinical Information: Low back pain, unspecified Comparison: None Findings: Again, extensive fibrous dysplasia involvement of the entire visualized pelvis as well as left-sided posterior aspects of ribs 10, 11 and 12, right-sided 10th and ninth ribs, and of the bodies of the vertebral: Lumbar liver seen. The sacrum is also involved. No acute fractures are seen. IMPRESSION: Chronic findings of fibrous dysplasia.
--- NOTE | 2024-11-02 09:28 | HMCIMG ---
Exam Type: THORACIC SPINE 2VWS Clinical Information: Pain in thoracic spine Comparison: None Findings: Fibrous dysplasia involvement of the entire left-sided rib cage with significant deformity and subtotal left rib cage collapse. Multiple vertebral body side involvement seen and there is also involvement of the head of the left clavicle. No acute fractures. IMPRESSION: Chronic fibrotic dysplasia changes.
== END | disposition home or self-care (01) ==
LOC: RAH 08:39
PROVIDERS: ATTEND Internal Medicine
DX: M85.09 Fibrous dysplasia (monostotic), multiple sites (principal); M54.6 Pain in thoracic spine; M54.50 Low back pain, unspecified
CPT/HCPCS: 72070; 72100

== ENCOUNTER → 2025-02-19 | Outpatient (CLI) | payer OTHER, MEDICARE ==
[~2025-02-19] MED LIST changes: -LATA2.5D14 OU; +LATA2.5D7 OU
--- NOTE | 2025-02-19 22:20 | HMCIMG ---
EXAM: MR Lumbar Spine Without Intravenous Contrast. CLINICAL HISTORY: Radiculopathy. Lumbosacral region. TECHNIQUE: Magnetic resonance images of the lumbar spine in multiple planes. CONTRAST: None. COMPARISON: None. FINDINGS: For this examination, spinal levels were labeled assuming five non-rib bearing, lumbar-type vertebrae with the inferior labeled L5. No acute fracture. Mild dextroscoliosis. Normal lordotic curvature. Mild multilevel spondylosis is evident by small marginal osteophytes. Mild multilevel disc desiccation noted. Normal vertebral body and disc heights. Heterogeneous marrow signal with multiple ill-defined lesions in the visualized vertebra. Partially visualized bilateral iliac bone lesions. Conus medullaris terminates at the L1 level. No abnormal epidural masses. Moderate subcutaneous edema in the lower back. Partially visualized cysts in the left adnexa, likely left ovarian cysts. Recommend ultrasound correlation. Individual spinal levels are described as follows: T12-L1: No disc bulge or herniation. No neural foraminal, lateral recess or spinal canal stenosis. L1-L2: No disc bulge or herniation. No neural foraminal, lateral recess or spinal canal stenosis. L2-L3: No disc bulge or herniation. No neural foraminal, lateral recess or spinal canal stenosis. L3-L4: No disc bulge or herniation. No neural foraminal, lateral recess or spinal canal stenosis. L4-L5: No disc bulge or herniation. No neural foraminal, lateral recess or spinal canal stenosis. L5-S1: No disc bulge or herniation. No neural foraminal, lateral recess or spinal canal stenosis. IMPRESSION: Mild multilevel spondylosis. Heterogeneous marrow signal with multiple ill-defined lesions in the visualized vertebra. Partially visualized bilateral iliac bone lesions. Imaging findings concerning for metastasis. Recommend correlation with the history. No significant interval changes. /Leopold
== END | disposition home or self-care (01) ==
LOC: RAH 09:34
PROVIDERS: ATTEND Pain Medicine Interventional Pain Medicine
DX: M47.26 Other spondylosis with radiculopathy, lumbar region (principal); M43.8X6 Other specified deforming dorsopathies, lumbar region; M89.8X8 Other specified disorders of bone, other site; M41.86 Other forms of scoliosis, lumbar region; M25.78 Osteophyte, vertebrae; R60.0 Localized edema
CPT/HCPCS: 72148